=== PATIENT | female | born 1935 | race Caucasian/White ===

== ENCOUNTER 2018-04-06 11:49 | Emergency (ER) | payer MEDICARE ==
--- NOTE | 2018-04-06 13:08 | ULT ---
RIGHT LOWER EXTREMITY VENOUS ULTRASOUND WITH DOPPLER: Date: 04/06/18 HISTORY: Swelling. Edema. COMPARISON: None. TECHNIQUE: Perez scale, color flow, Doppler imaging, and spectral waveform analysis performed of the right lower extremity deep venous system. FINDINGS: There is compressibility, presence of flow, and augmentation in the common femoral, femoral vein, and popliteal vein. There is flow in the greater saphenous vein, profunda vein, and posterior tibial vei n. IMPRESSION: No evidence of thrombus in the right lower extremity deep venous system. POS: JOHANN
== END 2018-04-06 15:52 | disposition home or self-care (01) ==
LOC: ERS 11:49
DX: M79.89 Other specified soft tissue disorders (principal); I10 Essential (primary) hypertension; E03.9 Hypothyroidism, unspecified

== ENCOUNTER 2018-07-24 13:53 | Inpatient (IN) | payer MEDICARE ==
[2018-07-24 16:20] LABS: Troponin I Less than 0.010 ng/mL (< 0.028)
[2018-07-24] MEDS ORDERED: Ondansetron PF 4 MG/2 ML Vial IVP PRN (16:39)
[2018-07-24] MEDS ORDERED: Acetaminophen 325 MG TAB PO PRN (16:39)
[2018-07-24] MEDS ORDERED: Ondansetron ODT 4 MG TAB PO PRN (16:39)
--- NOTE | 2018-07-24 16:47 | ULT ---
ULTRASOUND WITH DOPPLER DUPLEX VENOUS LOWER EXTREMITY RIGHT 07/24/18 CPT: 61654 ICD-10-PCS: B54D HISTORY: Pain of right lower extremity. TECHNIQUE: Color flow Doppler, spectral waveform analysis of pulsed Doppler, and duke-scale imaging with perla gurpreet and augmentation, were used to evaluate the right common femoral, femoral, popliteal, posterior tibial, and superficial femoral, veins; and the proximal portions of the profunda femoral and greater saphenous, veins. FINDINGS: Appropriate compressibility and flow within the imaged deep vein system of the right lower extremity without evidence of DVT. IMPRESSION: No DVT visualized within the imaged right lower extremity. POS: [facility]
[2018-07-24 17:36] VITALS: BMI 28.4
[2018-07-24 19:20] LABS: Troponin I Less than 0.010 ng/mL (< 0.028)
[2018-07-24 19:48] LABS: Folate (Folic Acid) 11.7 ng/mL (7.0-31.4)
--- NOTE | 2018-07-24 20:06 | MRI ---
MRI BRAIN 07/24/18 HISTORY: Confusion. Fall this morning. Multiplanar and multisequence noncontrast enhanced MRI images of the brain obtained. MRI images demonstrate diffuse cortical atrophy. No evidence of acute intracranial masses, hemorrhage s or strokes seen. The ventricles are of normal size. IMPRESSION: Unremarkable noncontrast enhanced MRI images of the brain. POS: JOHNNY
[2018-07-24] MEDS ORDERED: Atorvastatin Calcium 40 MG TAB PO SCH (21:00)
--- NOTE | 2018-07-25 02:04 | HP ---
DATE OF ADMISSION: 07/24/2018 CHIEF COMPLAINT: Patient presented to the ER with complaints of sudden onset of motor deficit in her right lower extremity. HISTORY OF PRESENTING ILLNESS: This is an 82-year-old female with a past medical history of repeated TIA, presented to the ER with sudden onset of right lower extremity weakness. Patient was in the dining area of her house when her right leg suddenly gave away and she was about to fall when she was caught by her . A stroke alert was initiated. Patient was given aspirin. Patient 's initial NIH was 2 and later in ER, NIH was counted to be 4 for ataxia and some sensory changes in the right upper extremity along with weakness of the right lower extremity. Patient denies any loc, confusion, difficulty with speech and etc PAST MEDICAL HISTORY: Significant for hypertension, TIA. PAST SURGICAL HISTORY: History of appendectomy and a surgical history of hysterectomy. PSYCHIATRIC HISTORY: No previous psychiatric history. SOCIAL HISTORY: Patient lives in a house with her . Denies any alcohol or drug abuse. Denies any smoking history. MEDICATION ALLERGIES: Patient has no known drug allergies. REVIEW OF SYSTEMS: Constitutional: Negative constitutional review of systems. Denies any chills or fever. HEENT: Denies any trauma to the head, dizziness. Denies any eye pain or vision changes or any ringing in the ears or runny nose. No complaints of sore throat. Respiratory: Denies any difficulty breathing, any cough or sputum or shortness of breath. Cardiovascular: Denies any chest pain or palpitations. Gastrointestinal: Patient denies any complaints of nausea or vomiting. No constipation or diarrhea. Musculoskeletal: Patient gives a history of low back pain with a radiating pain down to her right leg. Neurologic: Please see HPI. PHYSICAL EXAMINATION: VITAL SIGNS: Blood pressure is 146/56, pulse 62, respiratory rate 16, temperature 97.7. Vital signs are reviewed. Patient is afebrile. Pulse is normal. Blood pressure is within normal limits. GENERAL: Patient is in no apparent distress. HEENT: Acephalic, nontraumatic head. External ears and tympanic membranes are within normal limits. Eyelids and conjunctivae within normal limits. Pupils are round and reactive to light. No signs of any sore throat. No redness or discharge on the tonsils. NECK: Trachea is centrally situated with a preserved range of motions of the neck. RESPIRATORY: Chest examination within normal limits. LUNGS: Good airway entry. No rales, no wheezing. CARDIOVACULAR: Assessment is normal. It is regular rate and rhythm. S1 and S2 is normal with no murmurs, no gallops. ABDOMEN: Soft, NT/ND. No mass, no rigidity, no peritoneal signs. NEURO: Within normal limits. No focal deficits. No motor deficits at the time of examination. No sensory deficits. Cranial nerves intact. ASSESSMENT AND PLAN: 1. Transient ischemic attack versus stroke. The CT of the head and CTA of head and neck in the ER was within normal limits. We will go ahead and request an MRI of the brain without any contrast. Follow the stroke protocol. We will obtain folic acid and vitamin B12 levels. We will start the patient on aspirin and statin. 2. Hypertension. We will continue all the home medications. 3. We will also request for physical therapy, OT, and speech. 4. Neuro consult to be done if required. Dr. Nohemy SURESH
[2018-07-25] MEDS ORDERED: Levothyroxine Sodium 75 MCG TAB PO SCH (06:00)
[2018-07-25 07:51] VITALS: TEMP 98.1
[2018-07-25] MEDS ORDERED: Enoxaparin Sodium 30 MG/0.3 ML SYRINGE SC SCH (09:00)
[2018-07-25] MEDS ORDERED: Prevnar 13-Val Conj/PF 0.5 ML SYRINGE IM ONE ×2 (09:00→12:00)
[2018-07-25] MEDS ORDERED: Metoprolol Tartrate 100 MG TAB PO SCH (09:00)
[2018-07-25] MEDS ORDERED: Lisinopril 2.5 MG TAB PO SCH (09:00)
[2018-07-25 12:00] VITALS: BP 126/64
--- NOTE | 2018-07-26 01:28 | DIS ---
DATE OF ADMISSION: 07/24/2018 DATE OF DISCHARGE: 07/25/2018 ADMISSION DIAGNOSES: 1. Transient ischemic attack. 2. Hypertension. DISCHARGE DIAGNOSES: 1. Transient ischemic attack. 2. Hypertension. HISTORY OF PRESENT ILLNESS AND HOSPITAL COURSE: This is an 82-year-old female [facility] the [facility] of sudden weakness in her right leg and was about to fall onto the floo r when she was held by her . On evaluation in the ER, her right lower extremity was weak. Simón ji was then transferred to the [facility] and she got on NIH scale she was 4 for ataxia and some ch birgit in sensation in the right lower extremity. The patient was admitted for further evaluation and treatment. CT of the head and neck were within normal limits with no acute changes. The MRI was obt ained which again did not show any acute changes. No signs of infarction or hemorrhage. By the time of my evaluation, the patient's neurological status had come back to the baseline and she no longer had any weakness. She successfully completed PT, OT, and speech evaluation. The stroke labs of foli c acid and vitamin B12 are within normal limits. The patient was then discharged home to follow up w ith her primary care physician. DISCHARGE MEDICATIONS: 1. Aspirin 81 mg p.o. daily. 2. Atorvastatin 20 mg p.o. daily. DISCHARGE INSTRUCTIONS: 1. Continue all the home medications. 2. Heart healthy diet. 3. Physical activity as tolerated. 4. Please follow up with your primary care physician.
== END 2018-07-25 11:48 | disposition home or self-care (01) | DRG 69 ==
LOC: ERS 13:53 → 2SE 15:39 → OBSVTOIN 17:54
PROVIDERS: ADMIT Family Medicine; ATTEND Family Medicine
DX: G45.9 Transient cerebral ischemic attack, unspecified (principal); I10 Essential (primary) hypertension; R29.704 NIHSS score 4; E03.9 Hypothyroidism, unspecified; G83.11 Monoplegia of lower limb affecting right dominant side; Z86.73 Personal history of transient ischemic attack (TIA), and cerebral infarction without residual deficits; Z79.899 Other long term (current) drug therapy
CPT/HCPCS: 36415; 70551; 82607; 82746; 90471; 90670; G0009; G8978-GP-CJ; G8979-GP-CJ; G8980-GP-CJ; G8987-GO-CJ; G8988-GO-CJ; G8989-GO-CJ; J1650

== ENCOUNTER 2021-02-19 14:31 | Inpatient (IN) | payer MEDICARE ==
[2021-02-19] MEDS ORDERED: hydrALAZINE 20 MG/ML VIAL SLOW IVP PRN (16:44)
[2021-02-19] MEDS ORDERED: Labetalol HCl 100 MG/20 ML VIAL SLOW IVP PRN (16:44)
[2021-02-19] MEDS ORDERED: Senokot S 8.6-50 MG TAB PO PRN (18:44)
[2021-02-19] MEDS ORDERED: Acetaminophen 325 MG TAB PO PRN (18:44)
[2021-02-19] MEDS ORDERED: Famotidine 20 MG TAB PO SCH (21:00)
[2021-02-19 22:46] LABS: Bilirubin Negative (Negative); Blood, Urine Trace (Negative); Glucose, Urine (Dipstick) Negative (Negative); Ketone, Urine Trace mg/dL (Negative); Leukocyte Small (Negative); Nitrite Negative (Negative); Protein, Urine (Dipstick) Negative (Neg-Trace); Urobilinogen 0.2 mg/dL (Less than 2)
[2021-02-19 22:49] LABS: Bacteria/HPF None Seen HPF (None Seen); RBC/HPF 0-3 HPF (0-3); Squamous Epithelial 0-3 HPF (0-3); WBC/HPF 0-3 HPF (0-3)
[2021-02-19 22:56] LABS: Clarity Clear (Clear)
[2021-02-19 22:59] LABS: Urine Culture Reflex Yes Yes
[2021-02-20 01:59] LABS: Troponin I Less than 0.010 ng/mL (< 0.028)
[2021-02-20] MEDS ORDERED: Famotidine 20 MG TAB PO SCH (09:00)
[2021-02-20 09:35] LABS: SARS-CoV-2 NAA Rapid Test Not Detected (NotDetected)
[2021-02-20] MEDS: Acyclovir 800 mg Tablet PO SCH ×4 (09:50→21:47)
[2021-02-20] MEDS: Metoprolol Tartrate 100 MG TAB PO SCH (09:50)
[2021-02-20] MEDS: Lisinopril 2.5 MG TAB PO SCH (09:51)
[2021-02-20 11:51] VITALS: BMI 23.0
[2021-02-20 13:15] LABS: #Lymphocytes 1.6 thou/uL (1.20-3.40); #Monocytes 0.6 thou/uL (0.11-0.59); #Neutrophils 4.1 thou/uL (1.40-6.50); %Basophils 0.7 % (0.0-1.0); %Eosinophils 0.5 % (0.0-10.0); %Lymphocytes 24.6 % (21.0-51.0); %Monocytes 9.9 % (0.0-10.0); %Neutrophils 64.3 % (42.0-75.0); Mean Corpuscular HGB CONC 34.3 g/dL (32.0-36.0); Mean Corpuscular Hemoglobin 34.3 pg (27.0-31.0); Mean Corpuscular Volume 99.9 fL (78.0-98.0); Mean Platelet Volume 8.9 fL (7.4-10.4); Platelet Count 148 thou/uL (130-400); RBC Distribution Width 12.9 % (11.5-14.5); Red Blood Cell (RBC) Count 3.51 mill/uL (4.20-5.40); White Blood Cell (WBC) Count 6.4 thou/uL (4.8-10.8)
[2021-02-20 13:37] LABS: ALT (SGPT) 8 U/L (8-55); AST (SGOT) 14 U/L (5-34); Albumin 3.7 g/dL (3.4-4.8); Alkaline Phosphatase 60 U/L (40-110); Anion Gap 14 mmol/L (10-20); BUN (Urea Nitrogen) 14 mg/dL (9.8-20.1); Bilirubin, Total 0.6 mg/dL (0.2-1.2); Calc. Creatinine Clearance 41 mL/min (70-130); Calcium 8.9 mg/dL (7.8-10.44); Carbon Dioxide 20 mmol/L (23-31); Chloride 107 mmol/L (98-107); Globulin 2.5 g/dL (2.4-3.5); Glucose 101 mg/dL (83-110); Protein, Total 6.2 g/dL (5.8-8.1); Sodium 137 mmol/L (136-145)
[2021-02-20 13:41] LABS: Troponin I Less than 0.010 ng/mL (< 0.028)
[2021-02-21] MEDS ORDERED: Levothyroxine Sodium 75 MCG TAB PO SCH (06:00)
[2021-02-21] MEDS: Acyclovir 800 mg Tablet PO SCH (08:19)
[2021-02-21] MEDS: Metoprolol Tartrate 100 MG TAB PO SCH (08:19)
[2021-02-21] MEDS: Lisinopril 2.5 MG TAB PO SCH (08:20)
[2021-02-21] MEDS ORDERED: DONEPEZIL HCL 23 MG PO SCH (09:00)
[2021-02-21] MEDS ORDERED: Atorvastatin Calcium 10 MG TAB PO SCH (09:00)
[2021-02-21 11:30] VITALS: BP 133/59; TEMP 97.5
== END 2021-02-21 12:00 | disposition home health service (06) | DRG 83 ==
LOC: ERS 14:31 → 2SE 15:45 → OBSVTOIN 02-20 18:53
PROVIDERS: ADMIT Internal Medicine; ATTEND Family Medicine
DX: S06.5X9A Traumatic subdural hemorrhage with loss of consciousness of unspecified duration, initial encounter (principal); F03.91 Unspecified dementia, unspecified severity, with behavioral disturbance; Z66 Do not resuscitate; Z20.822 Contact with and (suspected) exposure to COVID-19; E03.9 Hypothyroidism, unspecified; I10 Essential (primary) hypertension; W18.30XA Fall on same level, unspecified, initial encounter; B02.9 Zoster without complications; R29.6 Repeated falls; Z86.16 Personal history of COVID-19; Z91.81 History of falling; Z90.49 Acquired absence of other specified parts of digestive tract; Z90.710 Acquired absence of both cervix and uterus; Z90.89 Acquired absence of other organs; Z79.899 Other long term (current) drug therapy; Z79.82 Long term (current) use of aspirin; Z79.890 Hormone replacement therapy; R40.4 Transient alteration of awareness
CPT/HCPCS: 36415; 70450; 80053; 81001; 83735; 84443; 84484; 85025; 87086; 93005; 93010; 99285; G0378; U0002; U0003; U0005